=== PATIENT | male | born 1965 | race Caucasian/White ===

== ENCOUNTER 2022-06-15 06:26 | Day surgery (SDC) | payer OTHER ==
[~2022-06-15] VITALS: Ht 167.6 cm; Wt 77.1 kg
[2022-06-15] MEDS ORDERED: fentaNYL citrate 0.05 MG/ML VIAL ONE (07:21)
[2022-06-15] MEDS ORDERED: diphenhydrAMINE 50 MG/ML VIAL ONE (07:21)
[2022-06-15] MEDS ORDERED: MIDAZOLAM 5 MG/5 ML VIAL ONE (07:21)
[2022-06-15] MEDS ORDERED: LIDOCAINE 2% 100 MG/5 ML UJET TP ONE (07:22)
[2022-06-15] MEDS ORDERED: MIDAZOLAM 5 MG/5 ML VIAL IV ONE (13:55)
[2022-06-15] MEDS ORDERED: fentaNYL citrate 0.05 MG/ML VIAL IVP ONE (13:55)
[2022-06-15] MEDS ORDERED: diphenhydrAMINE 50 MG/ML VIAL IVP ONE (13:55)
== END 2022-06-15 08:49 | disposition home or self-care (01) ==
LOC: MOR 06:26 → MMU 06:28 → MOR 08:49
PROVIDERS: ATTEND Internal Medicine Gastroenterology
DX: Z12.11 Encounter for screening for malignant neoplasm of colon (principal); K63.5 Polyp of colon; K57.30 Diverticulosis of large intestine without perforation or abscess without bleeding; I10 Essential (primary) hypertension; E78.00 Pure hypercholesterolemia, unspecified; Z80.3 Family history of malignant neoplasm of breast; Z20.822 Contact with and (suspected) exposure to COVID-19; Z79.899 Other long term (current) drug therapy
CPT/HCPCS: 45385; 87426; J1200; J2250; J3010; 88305